=== PATIENT | female | born 2000 | race Caucasian/White ===

== ENCOUNTER 2022-10-19 08:21 | Emergency (ER) | payer OTHER ==
[~2022-10-19] VITALS: Ht 170.2 cm; Wt 78.9 kg
[2022-10-19] MEDS ORDERED: CONCEPT DHA CA1 EACH PO (08:38)
[2022-10-19] MEDS ORDERED: DICLEGIS DR 101 EACH PO (08:40)
== END 2022-10-19 12:34 | disposition home or self-care (01) ==
LOC: ER 08:21
DX: O21.0 Mild hyperemesis gravidarum (principal); Z3A.16 16 weeks gestation of pregnancy

== ENCOUNTER 2023-03-06 22:23 | Inpatient (IN) | payer OTHER ==
[~2023-03-06] VITALS: Ht 167.6 cm; Wt 99.3 kg
[~2023-03-06 22:23] MED LIST: CONCEPT DHA CA1 EACH PO; DICLEGIS DR 101 EACH PO
[2023-03-06] MEDS ORDERED: PRENATAL TABLE1 EAC4 PO (22:51)
[2023-03-06] MEDS ORDERED: A/F PAIN RELIE500 MG PO (22:51)
== END 2023-03-08 13:51 | disposition home or self-care (01) | DRG 833 ==
LOC: LDR 22:23 → OB/GYN 03-07 19:04
PROVIDERS: ADMIT Obstetrics & Gynecology Gynecology; ATTEND Obstetrics & Gynecology Gynecology
PROC: 3E0F7GC Introduction of Other Therapeutic Substance into Respiratory Tract, Via Natural or Artificial Opening (ICD-10-PCS; principal; 2023-03-06)
PROC: 4A1HXCZ Monitoring of Products of Conception, Cardiac Rate, External Approach (ICD-10-PCS; 2023-03-06)
PROC: BY4FZZZ Ultrasonography of Third Trimester, Single Fetus (ICD-10-PCS; 2023-03-07)
DX: O26.893 Other specified pregnancy related conditions, third trimester (principal); R06.02 Shortness of breath; Z3A.36 36 weeks gestation of pregnancy; Z20.822 Contact with and (suspected) exposure to COVID-19

== ENCOUNTER 2023-03-21 05:58 | Inpatient (IN) | payer OTHER ==
[~2023-03-21] VITALS: Ht 167.6 cm; Wt 97.1 kg
[~2023-03-21 05:58] MED LIST changes: +A/F PAIN RELIE500 MG PO; +PRENATAL TABLE1 EAC4 PO
== END 2023-03-23 13:13 | disposition home or self-care (01) | DRG 807 ==
LOC: LDR 05:58 → OB/GYN 12:46
PROVIDERS: ADMIT Obstetrics & Gynecology; ATTEND Obstetrics & Gynecology
PROC: 10E0XZZ Delivery of Products of Conception, External Approach (ICD-10-PCS; principal; 2023-03-21)
PROC: 4A1HXCZ Monitoring of Products of Conception, Cardiac Rate, External Approach (ICD-10-PCS; 2023-03-21)
DX: O99.824 Streptococcus B carrier state complicating childbirth (principal); Z37.0 Single live birth; Z3A.38 38 weeks gestation of pregnancy; Z20.822 Contact with and (suspected) exposure to COVID-19

== ENCOUNTER 2024-07-01 19:23 | Emergency (ER) | payer OTHER ==
[~2024-07-01] VITALS: Ht 170.2 cm; Wt 88.5 kg
[2024-07-01] MEDS ORDERED: CEFTRIAXONE SODIUM 1,000 MG VIAL IM STA (21:00)
[2024-07-01 21:34] LABS: HEMATOCRIT 37.8 % (36.0-45.00); HEMOGLOBIN 12.6 g/dL (12.0-15.00); MEAN CELL VOLUME 83.4 fL (80.00-100.00); MEAN CORPUSCULAR HEMOGLOBIN 27.9 pg (27.00-32.0); MEAN CORPUSCULAR HGB CONC 33.4 g/dl (32.0-36.0); PLATELET COUNT 308 K/uL (150-450); RED BLOOD COUNT 4.53 M/uL (4.00-6.00); RED CELL DISTRIBUTION WIDTH 16.1 % (11.5-14.5)
[2024-07-01 21:48] LABS: CALCIUM 9.6 mg/dL (8.5-10.1); CREATININE SERUM 0.98 mg/dL (0.55-1.02); GFR 69.72; POTASSIUM 3.78 mEq/L (3.5-5.1)
[2024-07-01 21:55] LABS: URINE APPEARANCE Turbid; URINE BILIRRUBIN Negative (NEGATIVE); URINE BLOOD Large; URINE COLOR Dark Yellow; URINE GLUCOSE Negative (NEGATIVE); URINE KETONE 15 (NEGATIVE); URINE LEUKOCYTE Moderate; URINE NITRATE Positive
[2024-07-01 21:59] LABS: URINE BACTERIA 8977.4 uL (0.0-1933); URINE EPITHELIAL CELLS 32.6 uL (0.0-38.8); URINE RBC 10016.2 uL (0.0-20.8)
[2024-07-01 22:07] LABS: URINE CAST 1.09 uL (0.0-1.40); URINE PROTEIN 300 (NEGATIVE); URINE WBC > 5548.3 uL (0.0-23.2); URINE YEAST MODERATE /hpf
[2024-07-01] MEDS ORDERED: CEFTRIAXONE SODIUM 1,000 MG VIAL IV STA (22:11)
== END 2024-07-01 22:27 ==
LOC: ER 19:25
PROVIDERS: General Practice
DX: N30.90 Cystitis, unspecified without hematuria (principal); Z88.6 Allergy status to analgesic agent

== ENCOUNTER → 2024-11-30 | Emergency (ER) | payer OTHER ==
[~2024-11-30] VITALS: Ht 175.3 cm; Wt 90.7 kg
[~2024-11-30] MED LIST changes: +AMOX1TAB5 PO; +KETO10TA2 PO; +KETOROLAC TROMETHAMINE 10 MG TABLET PO ONE
== END | disposition home or self-care (01) ==
LOC: ER 11:10
DX: R68.84 Jaw pain (principal); K08.89 Other specified disorders of teeth and supporting structures; Z88.5 Allergy status to narcotic agent